=== PATIENT | female | born 1960 | race African-American/Black ===

== ENCOUNTER 2016-11-14 21:54 | Emergency (ER) | payer MEDICAID ==
[~2016-11-14] VITALS: Ht 152.4 cm; Wt 50.0 kg
[~2016-11-14 21:54] MED LIST: CELE200C PO; DIPH25CA83 PO; FOLI-43 PO; HYDR200T PO; HYDR25TA PO; LISI10TA5 PO; PRED10TA PO; PROT40 PO; TRAM50TA73 PO; [UNRECOGNIZED DRUG - CODE] PO; [UNRECOGNIZED DRUG - CODE] TOP
[2016-11-15] MEDS ORDERED: CLINDAMYCIN PHOSPHATE 600MG/4ML VIAL IM ONE (01:45)
[2016-11-15] MEDS ORDERED: HYDROCODONE/ACETAMINOPHEN 10/325MG TABLET PO ONE (01:45)
[2016-11-15] MEDS ORDERED: TETANUS, DIPHTHERIA, PERTUSSIS VAC/PF 0.5ML (>7YR OLD) IM ONE (01:45)
[2016-11-15 03:04] VITALS: BP 148/84
== END 2016-11-15 03:05 | disposition home or self-care (01) ==
LOC: ER 23:03
DX: L97.929 Non-pressure chronic ulcer of unspecified part of left lower leg with unspecified severity (principal); L97.919 Non-pressure chronic ulcer of unspecified part of right lower leg with unspecified severity; L03.115 Cellulitis of right lower limb; L03.116 Cellulitis of left lower limb; M32.9 Systemic lupus erythematosus, unspecified; Z79.899 Other long term (current) drug therapy; I10 Essential (primary) hypertension; M19.90 Unspecified osteoarthritis, unspecified site; F17.200 Nicotine dependence, unspecified, uncomplicated
CPT/HCPCS: 99283; 99406; Z7610; 90715; J3490